=== PATIENT | male | born 1950 | race Caucasian/White ===

== ENCOUNTER 2017-04-19 07:10 | Outpatient (CLI) | payer MEDICARE, OTHER ==
[2017-04-19 08:31] LABS: ALT (SGPT) 11 U/L (8-55); AST (SGOT) 18 U/L (5-34); Anion Gap 15 mmol/L (10-20); BUN (Urea Nitrogen) 11 mg/dL (8.4-25.7); Calc. Creatinine Clearance 0 mL/min (70-130); Calcium 9.7 mg/dL (7.8-10.44); Carbon Dioxide 25 mmol/L (23-31); Cardiac Risk 4.1 (Less than 4.5); Chloride 102 mmol/L (98-107); Cholesterol 246 mg/dl (< 200 Desired); Estimated GFR-MDRD 57; Glucose 112 mg/dL (80-115); HDL Cholesterol 60 mg/dL (>60 Neg Risk); LDL Cholesterol, Calculated 156 mg/dL; Magnesium 2.1 mg/dL (1.6-2.6); Potassium 3.8 mmol/L (3.5-5.1); Sodium 138 mmol/L (136-145); Triglycerides 152 mg/dL (Less than 150)
[2017-04-19 08:36] LABS: Bilirubin Negative (Negative); Blood, Urine Negative (Negative); Clarity Clear (Clear); Glucose, Urine (Dipstick) Negative (Negative); Leukocyte Negative (Negative); Nitrite Negative (Negative); Protein, Urine (Dipstick) > or equal to 300 mg/dL (Neg-Trace); Urobilinogen 0.2 mg/dL (0.2-1.0)
[2017-04-19 08:52] LABS: RBC/HPF 0-3 HPF (0-3)
[2017-04-19 08:53] LABS: Bacteria/HPF Rare-Few HPF (None Seen); Other Microscopic Description NO; Squamous Epithelial 0-3 HPF (0-3); WBC/HPF None Seen HPF (0-3)
[2017-04-19 18:01] LABS: Creatinine, Urine 113.82 mg/dL (63-166)
[2017-04-19 18:32] LABS: Microalbumin Urine Greater than 200.0 mg/dL (0.5-50.0); Microalbumin/Creat Ratio 1788.7 mg/g (Less than 30)
== END 2017-04-19 07:11 | disposition home or self-care (01) ==
LOC: NAV LAB 07:10
PROVIDERS: ATTEND Specialist
DX: I65.29 Occlusion and stenosis of unspecified carotid artery (principal); I10 Essential (primary) hypertension
CPT/HCPCS: 36415; 80048; 80061; 81003; 81015; 82043; 83735; 84450; 84460